=== PATIENT | female | born 1965 | race Caucasian/White ===

== ENCOUNTER 2017-01-05 21:50 | Inpatient (IN) | payer MEDICARE, OTHER ==
[~2017-01-05] VITALS: Ht 154.9 cm; Wt 86.2 kg
[2017-01-05 23:02] LABS: HEMOGLOBIN 13.6 gm/dl (12.3-15.3); RED BLOOD COUNT 4.38 M/UL (4.00-5.10); WHITE BLOOD COUNT 12.5 K/UL (4.5-11.0)
[2017-01-05 23:20] LABS: BUN/CREATININE RATIO 20 (0-10)
[2017-01-06 05:39] LABS: HEMOGLOBIN 13.1 gm/dl (12.3-15.3); RED BLOOD COUNT 4.21 M/UL (4.00-5.10); WHITE BLOOD COUNT 13.9 K/UL (4.5-11.0)
[2017-01-06 05:56] LABS: BUN/CREATININE RATIO 18 (0-10)
[2017-01-06] MEDS ORDERED: DESYREL 50 MG T50 MG PO (10:39)
[2017-01-06] MEDS ORDERED: CYMBALTA30 MG PO (10:39)
[2017-01-06] MEDS ORDERED: COZAAR50 MG PO (10:40)
[2017-01-06] MEDS ORDERED: DALIRESP500 MCG PO (10:40)
[2017-01-06] MEDS ORDERED: PROVENTIL HFA 61 INH INH (10:41)
[2017-01-06] MEDS ORDERED: IBUPROFEN800 MG PO (10:41)
[2017-01-06] MEDS ORDERED: NEURONTIN 400400 MG PO (10:42)
[2017-01-06] MEDS ORDERED: LIPITOR TAB 2020 MG PO (10:42)
[2017-01-06] MEDS ORDERED: HYDROCHLOROTHIA25 MG PO (10:42)
[2017-01-06] MEDS ORDERED: POLYETHYLENE GLY1 GM MC (10:44)
[2017-01-06] MEDS ORDERED: ULTRAM50 MG PO (10:45)
[2017-01-06] MEDS ORDERED: SPIRIVA18 MCG INH (10:45)
[2017-01-06] MEDS ORDERED: MOBIC15 MG PO (10:46)
[2017-01-06] MEDS ORDERED: SYMBICORT 160-1 INHA INH (10:47)
[2017-01-06] MEDS ORDERED: IPRAT-ALBUT 0.5-3 ML INH (11:14)
[2017-01-07 04:48] LABS: RED BLOOD COUNT 4.18 M/UL (4.00-5.10); WHITE BLOOD COUNT 20.9 K/UL (4.5-11.0)
[2017-01-07 05:10] LABS: BUN/CREATININE RATIO 23 (0-10)
[2017-01-08 04:51] LABS: HEMOGLOBIN 13.4 gm/dl (12.3-15.3); RED BLOOD COUNT 4.35 M/UL (4.00-5.10); WHITE BLOOD COUNT 20.6 K/UL (4.5-11.0)
[2017-01-08 05:07] LABS: BUN/CREATININE RATIO 53 (0-10)
[2017-01-09 05:49] LABS: HEMOGLOBIN 13.3 gm/dl (12.3-15.3); RED BLOOD COUNT 4.32 M/UL (4.00-5.10)
[2017-01-09 06:03] LABS: BUN/CREATININE RATIO 78 (0-10)
[2017-01-10 05:08] LABS: HEMOGLOBIN 13.3 gm/dl (12.3-15.3); RED BLOOD COUNT 4.29 M/UL (4.00-5.10); WHITE BLOOD COUNT 15.9 K/UL (4.5-11.0)
[2017-01-10 05:25] LABS: BUN/CREATININE RATIO 93 (0-10)
[2017-01-11 07:09] LABS: BUN/CREATININE RATIO 87 (0-10)
[2017-01-11 08:11] LABS: HEMOGLOBIN 14.5 gm/dl (12.3-15.3); RED BLOOD COUNT 4.65 M/UL (4.00-5.10); WHITE BLOOD COUNT 15.6 K/UL (4.5-11.0)
[2017-01-12 04:52] LABS: HEMOGLOBIN 13.4 gm/dl (12.3-15.3); RED BLOOD COUNT 4.32 M/UL (4.00-5.10); WHITE BLOOD COUNT 16.6 K/UL (4.5-11.0)
[2017-01-12 05:17] LABS: BUN/CREATININE RATIO 63 (0-10)
--- NOTE | 2017-01-12 11:19 | NUR ---
PATIENT SITTING UP WATCHING TV, O2 2L IN PL[address] APPEARS TO BE TOLERATING WELL. PATIENT AMBULATE EARLIER WITH PT USING WALKER AND SOB NOTED.
[2017-01-13 06:13] LABS: BUN/CREATININE RATIO 63 (0-10)
[2017-01-13 06:18] LABS: HEMOGLOBIN 13.4 gm/dl (12.3-15.3); RED BLOOD COUNT 4.32 M/UL (4.00-5.10); WHITE BLOOD COUNT 15.3 K/UL (4.5-11.0)
--- NOTE | 2017-01-14 15:07 | NUR ---
PATIENT HAS BEEN UP USING 023L VIA NASAL CANNULA, TOLERATING WELL.
== END 2017-01-14 15:27 | DRG 189 ==
LOC: ER1 21:50 → ZEROF 01-06 00:44 → MED SURG 4 01-06 00:44
PROVIDERS: Emergency Medicine; Family Medicine; Internal Medicine; Internal Medicine Infectious Disease; Physician Assistant; ADMIT Internal Medicine
DX: J96.21 Acute and chronic respiratory failure with hypoxia (principal); J18.9 Pneumonia, unspecified organism; J44.1 Chronic obstructive pulmonary disease with (acute) exacerbation; J44.0 Chronic obstructive pulmonary disease with (acute) lower respiratory infection; F17.210 Nicotine dependence, cigarettes, uncomplicated; E87.6 Hypokalemia; M79.7 Fibromyalgia; R11.2 Nausea with vomiting, unspecified; E78.5 Hyperlipidemia, unspecified; I10 Essential (primary) hypertension; G47.33 Obstructive sleep apnea (adult) (pediatric); D72.829 Elevated white blood cell count, unspecified; F41.9 Anxiety disorder, unspecified; R51 Headache; Z88.1 Allergy status to other antibiotic agents; Z88.0 Allergy status to penicillin; Z88.8 Allergy status to other drugs, medicaments and biological substances; Z79.899 Other long term (current) drug therapy; T38.0X5A Adverse effect of glucocorticoids and synthetic analogues, initial encounter; H04.129 Dry eye syndrome of unspecified lacrimal gland; E66.3 Overweight; Z71.6 Tobacco abuse counseling; L27.0 Generalized skin eruption due to drugs and medicaments taken internally; T36.0X5A Adverse effect of penicillins, initial encounter; Z68.35 Body mass index [BMI] 35.0-35.9, adult
CPT/HCPCS: ECHO; 36415; 36600; 71010; 71020; 80048; 80053; 82550; 82553; 82803; 82962; 83605; 83735; 83874; 83880; 84100; 84443; 84484; 85025; 85027; 85610; 85730; 87040; 87070; 87205; 93005; 93306; 93970; 94640; 94660; 94664; 96361; 96365; 96375; 96376; 97116; 97535; 99291; C9113; J0696; J1335; J1650; J1940; J2405; J2920; J2930; J7030; J7050